=== PATIENT | female | born 1960 | race African-American/Black ===

== ENCOUNTER 2025-05-15 09:34 | Outpatient (CLI) | payer MEDICARE, SELFPAY ==
--- NOTE | ~2025-05-15 | MM_ITS ---
EXAMINATION: MM screening viridiana BI w marlena HISTORY: Screening mammogram TECHNIQUE: Craniocaudal and mediolateral oblique 3-D tomosynthesis images were obtained and synthetic 2-D images were generated. CAD analysis was submitted and interpreted. COMPARISON: No prior mammogram is available for comparison at this institution. BREAST PARENCHYMAL COMPOSITION:Not Dense. There are scattered areas of fibroglandular density. FINDINGS: No suspicious mass, calcification, or architectural distortion are identified in either kristal ast to suggest malignancy. There has been no suspicious interval change. IMPRESSION: No mammographic evidence of malignancy. Recommend routine screening mammography in one year. BI-RADS Category 1: Negative Reviewed, dictated and finalized at location .
--- OUTSIDE RECORDS SUMMARY | 2025-05-15 09:46 | XMS_ITS | Data Portability ---
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 [facility] ([facility]) [address] [facility], [place], [address], 12/04/2024 09:15:27 12/03/1912/03/2024 CBC WITH DIFFE RENTI AL/PL ATELE T lymphs (absolute) 2.6 x10e3 /uL 0.7-3. 1 Not Available [facility] ([facility]) [address] [place], [address], 12/04/2024 09:15:27 12/03/1912/03/2024 CBC WITH DIFFE RENTI AL/PL ATELE T monocytes(ab solute) 0.4 x10e3 /uL 0.1-0. 9 Not Available [facility] ([facility]) [address] [place], [address], 12/04/2024 09:15:27 12/03/1912/03/2024 CBC WITH DIFFE RENTI AL/PL ATELE T eos (absolute) 0.1 x10e3 /uL 0.0-0. 4 Not Available [facility] ([facility]) [address] [place], [address], 12/04/2024 09:15:27 12/03/1912/03/2024 CBC WITH DIFFE RENTI AL/PL ATELE T baso (absolute) 0.0 x10e3 /uL 0.0-0. 2 Not Available [facility] ([facility]) [address] [place], [address], 12/04/2024 09:15:27 12/03/1912/03/2024 CBC WITH DIFFE RENTI AL/PL ATELE T immature granulocytes 0 % notest ab. Not Available [facility] ([facility]) [address] [facility], [place], [address], 12/04/2024 09:15:27 12/03/19 25 12/03/2024 CBC WITH DIFFE RENTI AL/PL ATELE T immature grans (abs) 0.0 x10e3 /uL 0.0-0. 1 Not Available [facility] ([facility]) [address] [facility], [place], [address], 12/04/2024 09:15:27 12/03/19 25 12/06/2024 SPECI MEN STATU S REPOR T specimen status report TNP [facility] was unabl e to colle ct suffi cient speci men to perfo rm the follo wing test( s), and is provi ding the patie nt with re-co llect ion instr uctio ns. TEST: [id number] Lipop rotei n (a) Panel : [id number] Not Available [facility] ([facility]) [address] [facility], [place], [address], 12/06/2024 15:09:05 12/03/19 25 12/06/2024 LIPOP ROTEI N (A) lipoprotein (A) - nmol/ L [facility] was unabl e to colle ct suffi cient speci men to perfo rm the follo wing test( s), and is provi ding the patie nt with re-co llect ion instr uctio ns. Note: Value s great er than or equal to 75.0 nmol/ L may indic ate an indep enden t risk facto r for CHD, but must be evalu ated with cauti on when appli ed to non-C sageas misty galloway ation s due to the influ ence of bubba ic facto rs on Lp(a) acros s ethni citie s. Not Available [facility] ([facility]) [address] [facility], [place], [address], 12/06/2024 15:09:05 12/03/19 25 12/04/2024 H PYLOR I BREAT H TEST H pylori breath test NEGATI VE negati ve Not Available [facility] ([facility]) [address] [facility], [place], [address], 12/06/2024 15:09:07 12/03/19 25 12/04/2024 HEMOG LOBIN A1C hemoglobin A1C 5.6 % 4.8-5. 6 Predi abete s: 5.7 - 6.4 Diabe hector: >6.4 Glyce bibiana contr ol for adult s with diabe hector: <7.0 Not Available [facility] ([facility]) [address] [place], [address], 12/06/2024 15:09:08 12/03/19 25 12/04/2024 TSH TSH 1.310 uIU/m L 0.450- 4.500 Not Available [facility] ([facility]) [address] [place], [address], 12/06/2024 15:09:09 12/03/19 25 12/04/2024 VITAM IN D, 25-HY DROXY vitamin D, 25-hydroxy 13.7 NG/mL 30.0-1 00.0 below low normal Vitam in D defic iency has been defin ed by the Insti tute of Medic ine and an Endoc rine Socie ty pract ice guide line as a level of serum 25-OH vitam in D less than 20 ng/mL (1,2) . The Endoc rine Socie ty went on to [facility] er defin e vitam in D insuf ficie ncy as a level betwe en 21 and 29 ng/mL (2). 1. IOM (Inst itute of Medic ine). 2009. Dieta ry refer ence intak es for calci um and D. Alis matute [place]: The Natio nal [facility] Press . 2. Maria C do MF, Saima ey [place], Bisch off-F errar i [place]IL[place], et al. Evalu ation , treat ment, and preve ntion of vitam in D defic iency : an Endoc rine Socie ty clini sarah pract ice guide line. JCEM. 2010; 96(7) :1911 -30. Not Available [facility] ([facility]) [address] [facility], [place], [address], 12/06/2024 15:09:10 12/03/19 25 12/04/2024 HIV AB/P2 4 AG WITH REFLE X HIV Ab/P24 Ag screen NON REACTI VE nonrea ctive HIV-1 /HIV- 2 antib odies and HIV-1 p24 antig en were NOT detec lynnette. There is no labor atory evide nce of HIV infec tion. HIV Negat estrella Not Available [facility] ([facility]) [address] [facility], [place], [address], 12/06/2024 15:09:11 11/21/19 25 09/18/2024 CT, angio gram, chest , w/ contr ast No observ ation record ed. [facility] [address] [place], [address], 02/17/2025 12:07:11 11/21/19 25 09/18/2024 XR, chest No observ ation record ed. [facility] [address] [place], [address], 02/17/2025 12:07:11 11/21/19 elect georgina gupta am No observ ation record ed. [facility] [address] [place], [address], 02/17/2025 12:07:11 Result Notes None recorded. Problems Name Problem SNOMED Code Status Onset Date Resolution Date Notes Provider Name and Address Organization Details Recorded Time Body mass index 25-29 - overweight 300979703 Active 2017 Paty Herrmann PA-C Attn: Accounting ,[address] [facility], [place], [address] , [place] - [facility] 8 11:02:11 Acanthosis nigricans 963532912 Active 2017 Paty Herrmann PA-C Attn: Accounting ,[address] [facility], [place], [address] , [place] [facility] 8 11:03:48 Hyperlipid emia 53583485 Active 2017 Rian Van MD Attn: Accounting ,[address] [facility], [place], [address] , [place] [facility] 5 11:02:52 Essential hypertensi on 52037834 Active 2023 Rian Van MD Attn: Accounting ,[address] [facility], [place], [address] , [place] [facility] 5 11:02:47 Disorder of lipid metabolism 771011786 Active 2024 Rian Van MD Attn: Accounting ,[address] [facility], [place], [address] , [place] [facility] 5 11:23:07 SARS-CoV-2 mRNA vaccine declined 7138818478 Active 2024 Rian Van MD Attn: Accounting ,[address] [facility], [place], [address] , [place] [facility] 5 14:27:46 Tetanus vaccinatio n declined by patient 847752354 Active 2024 Rian Van MD Attn: Accounting ,[address] [facility], [place], [address] , [place] [facility] 5 14:27:46 Influenza vaccinatio n declined 806165091 Active 2024 Rian Van MD Attn: Accounting ,[address] [facility], [place], [address] , [place] [facility] 5 14:27:49 Heartburn 12772658 Active 2024 Rian Van MD Attn: Accounting ,[address] [facility], [place], [address] , [place] [facility] 5 14:27:51 Colon cancer screening declined 6921334238910 9 Active 2024 Rian Van MD Attn: Accounting ,[address], [place], [address] , [facility] 13:13:55 Problem Notes None recorded. Procedures Surgical History Date Name Laterality Status Provider Name and Address Organization Details Recorded Time 11/05/19 Total hysterectomy completed Paty Herrmann PA-C Attn: Accounting, [address], [place], [address], [facility] 12/25/2017 10:57:25 Eye Surgery completed Nitza Degroot MA [place] - [facility] 12/25/2017 10:36:54 Imaging Results None recorded. Procedure Notes None recorded. Medical Equipment None Reported. Allergies No known drug allergies Medications Name Sig Start Date Stop Date Status Note LastModified by Organization Details LastModified Time amoxicillin 500 mg capsule 12/25 completed Not Available Not Available Not Available latanoprost 0.005 % eye drops INSTILL 1 DROP IN BOTH EYES EVERY NIGHT AT BEDTIME active Not Available Not Available No t Available neomycin-po lymyxin-hyd rocort 3.5 mg/mL-10,00 0 unit/mL-1 % ear solution 12/25 completed Not Available Not Available Not Available nifedipine ER 30 mg tablet,exte nded release TAKE 1 TABLET BY MOUTH EVERY DAY DIRECTED FOR HYPERTENS ION active Not Available Not Available No t Available acetaminoph en 300 mg-codeine 30 mg tablet 12/25 completed Not Available Not Available Not Available amlodipine 5 mg tablet TAKE 1 TABLET BY MOUTH EVERY DAY AT BEDTIME FOR HIGH BLOOD PRESSURE 02/17 completed Not Available Not Available Not Available amlodipine 10 mg tablet TAKE 1 TABLET BY MOUTH EVERY DAY AT BEDTIME FOR HYPERTENS ION 04/14 completed I felt funny Not Available Not Available Not Available pantoprazol e 40 mg tablet,magdaleno yed release TAKE 1 TABLET BY MOUTH EVERY DAY DIRECTED FOR GERD 2024 active Not Available Not Available Not Avai lable ergocalcife rol (vitamin D2) 1,250 mcg (50,000 unit) capsule TAKE 1 CAPSULE BY MOUTH ONCE A WEEK active Not Available Not Available No t Available Vitals Date Recorded Systolic And Diastolic Provider Name and Address Organization Details Last Updated DateTime 11/21/2024 158/80 mm[Hg] Rian Van MD Attn: Accounting,[address] [place], [address], [facility] 11/21/2024 11:19:58 Date Recorded Body height Body mass index (BMI) Body weight Respiratory rate Heart rate Oxygen saturation Oxygen saturation in Arterial blood by Pulse oximetry Systolic And Diastolic Provider Name and Address Organization Details Last Updated DateTime 5 159.39 cm 30.2 kg/m2 83788.1 1 g 18 /min 80 /min 98 % 98 % 150/80 mm[Hg] Dayami Acharya MA [facility] 10:56:25 Date Recorded Systolic And Diastolic Provider Name and Address Organization Details Last Updated DateTime 02/17/2025 180/80 mm[Hg] Rian Van MD Attn: Accounting,[address] [place], [address], [facility] 02/17/2025 13:28:40 Date Recorded Body height Body mass index (BMI) Body weight Heart rate Oxygen saturation Oxygen saturation in Arterial blood by Pulse oximetry Respiratory rate Body temperature Systolic And Diastolic Provider Name and Address Organization Details Last Updated DateTime 5 159.39 cm 30.1 kg/m2 05305.6 7 g 70 /min 98 % 98 % 16 /min 98.5 [degF] 150/76 mm[Hg] Dayami Acharya MA [facility] 12:05:05 Date Recorded Body height Body mass index (BMI) Body weight Heart rate Oxygen saturation Oxygen saturation in Arterial blood by Pulse oximetry Body temperature Respiratory rate Systolic And Diastolic Provider Name and Address Organization Details Last Updated DateTime 159.39 cm 30.5 kg/m2 16510.9 4 g 68 /min 97 % 97 % 98.4 [degF] 14 /min 160/80 mm[Hg] GAVIN Stallings [facility] 12:05:18 Date Recorded Body weight Body mass index (BMI) Body height Body temperature Oxygen saturation Oxygen saturation in Arterial blood by Pulse oximetry Heart rate Systolic And Diastolic Provider Name and Address Organization Details Last Updated DateTime 1 59866.7 g 30.4 kg/m2 159.39 cm 98 [degF] 98 % 98 % 68 /min 148/80 mm[Hg] Cyndee Carreon [place] - [facility] 1 10:45:03 Social History Question Answer Notes LastModified by Organizat ion Details LastModified Time Tobacco Smoking Status Never Smoker Nitza Degroot MA null, [place] - [facility] 12/25/2017 10:38:21 Do You Have An Advance Directive? No Information not available 12/25/2017 What Is Your Level Of Caffeine Consumption? Occasional Information not available 12/25/2017 How Much Tobacco Do You Chew? None Information not available 12/25/2017 What Type Of Diet Are You Following? REGULAR Information not available 12/25/2017 Which Illicit Or Recreational Drugs Have You Used? None Information not available 12/25/2017 Education 12 Graduated Information no t available 12/25/2017 Are There Any Guns Present In Your Home? No Information not available 12/25/2017 Legally Blind In One Or Both Eyes? No Information not available 12/25/2017 Marital Status Informatio n not available 12/25/2017 What Was The Date Of Your Most Recent Tobacco Screening? 04/14/2025 Information not available 04/14/2025 Performs Monthly Self-breast Exam? No Information not available 12/25/2017 Seat Belts Used Routinely Yes Information not available 12/25/2017 Smoke Alarm In Home Yes Information not available 12/25/2017 How Much Tobacco Do You Smoke? No Information not available 12/25/2017 General Stress Level Low Information not available 12/25/2017 Do You Use Sunscreen Routinely? No Information not available 12/25/2017 How Many Years Have You Smoked Tobacco? 0 Information not available 12/25/2017 Sex: Unknown Functional Status Question Answer Note LastModified by Organizat ion Details LastModified Time Do you use any illicit or recreational drugs? No Information not available 11/21/2024 What is your level of alcohol consumption? 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 Occasional Information not available 12/25/2017 Mental Status None recorded. Family History Relationship Description Onset Age of this Age Resolved Age Notes LastModified by Organization Details LastModified Time Brother Hypertensive disorder Not available 2017 10:38:08 Father Hypertensive disorder Not available 2017 10:38:08 Mother Hypertensive disorder Not available 2017 10:38:08 Sister Hypertensive disorder Not available 2017 10:38:08 Medical History Condition Response High Blood Pressure Y High Cholesterol Y Gynecological History Statement/Question Response Current Control Method Hysterectom y Date of LMP Obstetrics History GPAL:G 0 P 0 0 0 0 Immunizations Vaccine Type Date Status Note Provider Nam e and Address Organization Details Recorded Time COVID-19, mRNA, LNP-S, PF, 100 mcg/0.5mL dose or 50 mcg/0.25mL dose 11/29/2021 completed GAVIN St[place], [place] - [facility] 11/21/2024 10:45:26 COVID-19, mRNA, LNP-S, PF, 100 mcg/0.5mL dose or 50 mcg/0.25mL dose 03/31/2021 completed GAVIN Stall[place] [facility] 11/21/2024 10:45:26 COVID-19, mRNA, LNP-S, PF, 100 mcg/0.5mL dose or 50 mcg/0.25mL dose 05/05/2021 completed GAVIN Stall[place], [place] [facility] 11/21/2024 10:45:26 Past Encounters Encounter ID Performer Location Encounter Start Date Encounter Closed Date Diagnosis/Indication Diagnosis SNOMED-CT Code Diagnosis ICD10 Code Diagnosis Note [id number] MD Елена Oneil (Adult Med) [address] [place] [address] 12/25/2017 10:08:09 12/25/2017 11:34:12 Adult health examination 689343112 Z00.00 Screening for disorder 003957566 Z13.9 Patient consented to screen Screening for malignant neoplasm of breast 202369848 Z12.31 Screening for malignant neoplasm of colon 485610184 Z12.11 Body mass index 25-29 - overweight 217638754 Z68.29 Advised 30 minutes of exercise 5 days/week Advised to not drink her calories Advised 3 balanced meals/day with plenty of fruits and vegetables Acanthosis nigricans 402 243386 L83 Will check a1c [id number] MD Елена Alejandro (Adult Med) [address] [place] [phone] 09/22/2021 10:19:45 09/23/2021 13:00:46 Hyperlipidemia 61471177 E78.5 [id number] MD Елена Stafford (Adult Med) [address] [place] [address] 11/21/2024 10:39:36 11/25/2024 12:52:40 General examination of patient 067002470 Z00.01 Essential hypertension 07292707 I10 Discussed Screening for malignant neoplasm of breast 928374744 Z12.39 Disorder o f lipid metabolism 624456246 E78.9 Influenza vaccination declined 674410269 Z28.21 SARS-CoV-2 mRNA vaccine declined 4317666498 Z28.21 Tetanus va ccination declined by patient 010740751 Z28.21 Heartburn 79008551 R12 Atypical chest pain 1025 83152 R07.89 Multiple RF Body mass index 30+ - obesity 512406010 Z68.30 [id number] MD Елена Stafford (Adult Med) [address] [place] [phone] 02/17/2025 11:41:49 02/18/2025 14:05:47 Essential hypertension 76495872 I10 Increase Amlodipine to 10 mg HS, side effects were discussed Disorder o f lipid metabolism 192632687 E78.9 Discussed Vitamin D deficiency 347 06062 E55.9 [id number] Tabitha Doherty MD [facility] (Adult Med) [address] [place] [address] 03/24/2025 09:02:15 04/03/2025 03:47:52 Disorder of lipid metabolism 451098334 E78.9 [id number] Rian Van MD [facility] (Adult Med) [facility] [place] [address] 04/14/2025 11:52:40 04/15/2025 11:22:45 Essential hypertension 67647110 I10 Stop Amlodipine 5 mg, start Nifedipine 30 mg, side effects were discussed including but not limited to headaches and dizziness OV 02/17/2025I ncrease Amlodipine to 10 mg HS, side effects were discussed Colon can er screening declined 1798219153 9109 Z53.20 Health Concerns Section Related Observation LastModified by Organization Detai ls LastModified Time None Recorded Concern Status LastModified by Organization Details LastModified Time None Recorded Advance Directives Directive N: Payers Insurance Date Sequence Insurance Name Policy Number Policy Caputo Covered Member ID Caputo Member ID Guarantor Name 04/11/2025 1 [facility] (MEDICARE REPLACEMENT/AD VANTAGE - HMO) [id number] Cathi Carpenter [id number] Cathi Carpenter 12/04/2024 1 [facility] - DOS ON OR AFTER 21 (MEDICAID REPLACEMENT - HMO) Cathi Carpentre [id number] Cathi Carpenter 11/21/2024 1 [place] [facility] OF PUBLIC AID Cathi Carpenter [id number] Cathi Carpenter 11/21/2024 1 [facility] - [facility] PRIOR TO 05/05/2021 (MEDICAID REPLACEMENT - HMO) Cathi Carpenter [id number] Cathi Carpenter Notes Date Note Type Note Provider Name and Address Organization Details Recorded Time 1 text/html Was told by her loss prevention auditor to get a PE Angel Yoo MD Attn: Accounting,[address] [facility], [place], [address], [facility] 09/22/2021 11:02:38 5 text/html Angina/Chest PainReported bypatient.Quality:pressure Severity:not limiting Onset/Timing:has noted for months Context:at rest Aggravating Factors:nothing makes it worse Associated Symptoms:no dyspnea; no decrease in exercise capacity; no fatigue; no nocturnal episodes; no resting episodes; no associated palpitations; no associated dizzinessHypertension F/UReported bypatient.Associated Symptoms:no dizziness; no lightheadedness; no chest pain; no shortness of breath; no palpitations; no edema; no calf pain with exertion Lifestyle:regular exercise; limiting/avoiding salt Medications:taking medications as directed; no side effects from medication They told me to come for a follow upMy chest was hurting every other Avtar am having heartburn now 64 y/o BF who was last seen by a different provider on 09/19/2021, she had a recent ER visit with chest pain and at that time, she was diagnosed with HTN. She has been compliant with the Amlodipine although she is yet to take it this morning, she denies any more precordial chest pain. However, she has been having symptoms suggestive of GERD. When she had chest pain it was precordial with no reported nausea, vomiting, radiation or diaphoresis. She does not snore and there are no reported apneic episodes. PMHX. Hyperlipidemia, HTN Rian Van MD Attn: Accounting,[address] [place], [address], [facility] 11/21/2024 14:28:18 5 text/html Hypertension F/UReported bypatient.Associated Symptoms:no dizziness; no lightheadedness; no chest pain; no shortness of breath; no palpitations; no edema; no calf pain with exertion Lifestyle:regular exercise; limiting/avoiding salt Medications:taking medications as directed; no side effects from medication Ms Carpenter is doing well, she sees no need to be seen by the health education assistant she was referred to. Rian Van MD Attn: Accounting,[address] [place], [address], [facility] 02/17/2025 13:30:40 5 text/html Hypertension F/UReported bypatient.Associated Symptoms:no dizziness; no lightheadedness; no chest pain; no shortness of breath; no palpitations; no edema; no calf pain with exertion Lifestyle:regular exercise; limiting/avoiding salt Medications:not taking medications as directed;side effects from medications The other one made me sick Ms. Carpenter was unable to tolerate the 10 mg of amlodipine, she went back to the 5 mg dose. She continues to refuse colon cancer screening Rian Van MD Attn: Accounting,[address] [facility], [place], [address], [facility] 04/14/2025 13:14:15 OBGyn Episode No OBEpisode recorded.
== END 2025-05-15 09:35 | disposition home or self-care (01) ==
LOC: ANHIMG 09:41
PROVIDERS: PCP Internal Medicine Infectious Disease; Visit Provider Internal Medicine Infectious Disease
DX: Z12.31 Encounter for screening mammogram for malignant neoplasm of breast (principal)
CPT/HCPCS: 77063; 77067